=== PATIENT | male | born 1940 | race Caucasian/White ===

== ENCOUNTER → 2016-12-25 | Day surgery (SDC) | payer MEDICARE ==
[~2016-12-25] VITALS: Ht 177.8 cm; Wt 101.2 kg
[~2016-12-25] MED LIST: /PANT40TA; /WARF4TA; /WARF5TA; ACET65TA; ACETAMINOPHEN 325 MG TAB PO PRN; ACETYLCHOLINE OPHTH SOLN 1% 2ML As Ordered ONE; ALDA25TA2; ALLO100T PO; ALTA10CA; AcetaZOLAMIDE 500 MG ER CAP PO ONE; BENPAD EX; BSS with VANC/TOB/EPI for EYE CASES IR ONE; CLEO150C; COLA100C PO; COLA100C2; CORE3.12 PO; COUM1TAB14 PO; COUM1TAB19 PO; CYCLOPENTOLATE 2% OPHTH SOLN OS ONE; D5W/0.2% SODIUM CHLORIDE 250 ML IV SCH; DIGO0.12 PO; DIGO0.257; EUCELOT2; FERR325T; FERR325T3 PO; FINA5TAB2 PO; FLOM5CAP PO; FOLI1TAB; GLUC500T; HEALON DUET (HEALON 10MG/ML 0.55ML & HEALON ENDOCOAT 30MG/ML 0.85ML) As Ordered ONE; HEALON DUET (HEALON 10MG/ML 0.55ML & HEALON ENDOCOAT 30MG/ML 0.85ML) XX ONE; INSUDET SC; KEFL500C; KENALOG; KETOROLAC 0.5% OPHTH SOLN OS ONE; LASI40TA PO; LASI80TA; LIDOCAINE 1% SDV 5 ML VIAL As Ordered ONE; LIDOCAINE 1% SDV 5 ML VIAL XX ONE; LIDOCAINE 4% INJ 5 ML AMP OU ONE; LIDOCAINE W/EPINEPHRINE 1% 20ML VIAL XX ONE; LIPI20TA PO; LR 1,000 ML IV SCH; MELA0.02 PO; MIDAZOLAM INJ 2 MG/2 ML VIAL (J2250) As Ordered ONE; MOXIFLOXACIN IN BSS 0.25MG/0.25ML INTRACAMERAL INJ (OR EYE ONLY)(J2280) As Ordered ONE; MOXIFLOXACIN IN BSS 0.25MG/0.25ML INTRACAMERAL INJ (OR EYE ONLY)(J2280) ICAM ONE; MULT1TAB10 PO; NITR4TASL SL; OFLOXACIN 0.3 % (OCUFLOX) OPTH SOL 5ML OS ONE; PHENYLEPHRINE 2.5% OPHTH SOL 2ML OS ONE; POVIDONE-IODINE 5% OPHTH PREP SOL 30ML As Ordered ONE; PROPARACAINE 0.5% OPHTH SOL 15ML OS PRN; PROT1TAB2 PO; RAMI1.25 PO; SENN8.6C PO; SITA50TAB PO; SLOWTAB; TACLOIN4 EX; TRAM50TA2; TRIAMCINOLONE PRES FR 40 MG/ML 1ML(TRIESENCE)(OR EYE ONLY)(J3300 PER 1MG) As Ordered ONE; TRIAMCINOLONE PRES FR 40 MG/ML 1ML(TRIESENCE)(OR EYE ONLY)(J3300 PER 1MG) IO ONE; TRIMETHOBENZAMIDE 300 MG CAP PO PRN; TROPICAMIDE 1% OPHTH SOLN 2 ML OS ONE; TYLE325T5 PO; VITA500C; ZOCO10TA; fentaNYL 100 MCG/2 ML INJECTION (J3010) As Ordered ONE; vitamin D
[2016-12-25 12:55] VITALS: BP 120/59
--- NOTE | 2016-12-25 13:51 | RO ---
DATE OF PROCEDURE: 12/25/2016 PREPROCEDURE DIAGNOSES: Cataract and myosis left eye. POSTPROCEDURE DIAGNOSES: Cataract and myosis left eye. PROCEDURE: SURGEON: Sandra Pendleton MD LICENSED LOAN OFFICER: None. COMPLICATIONS: None. ANESTHESIA: DESCRIPTION OF PROCEDURE: Procedure in detail: The patient was brought to the operating room, laid in supine position, and the eye was prepped and draped in a sterile fashion for ophthalmic surgery, and a lid speculum was placed. A sideport incision was made, and EndoCoat was injected into the anterior chamber. A temporal clear corneal incision was then made with a 2.5 mm keratome, followed by placement of the Malyugin ring 7 mm because of myosis. Capsulorrhexis was then done for hydrodissection and phacoemulsification in a [id number] method within the capsular bag. Excess corticol material was then aspirated, and the Malyugin ring was removed. Miochol was injected because of the floppy iris. The wound was hydrated. Lid speculum removed. Intracameral moxifloxacin 0.1 mL was then given, and sub-Tenon injection cannula was given. The patient returned to the recovery room in stable condition.
== END | disposition home or self-care (01) ==
LOC: M SDC 10:07
PROVIDERS: ATTEND Ophthalmology
DX: H26.9 Unspecified cataract (principal); H57.03 Miosis; H21.81 Floppy iris syndrome; I48.91 Unspecified atrial fibrillation; I10 Essential (primary) hypertension; E78.5 Hyperlipidemia, unspecified; E66.9 Obesity, unspecified; E11.8 Type 2 diabetes mellitus with unspecified complications; I50.9 Heart failure, unspecified; D64.9 Anemia, unspecified; M19.90 Unspecified osteoarthritis, unspecified site; L40.9 Psoriasis, unspecified; G47.30 Sleep apnea, unspecified; N40.0 Benign prostatic hyperplasia without lower urinary tract symptoms; N28.9 Disorder of kidney and ureter, unspecified; Z88.6 Allergy status to analgesic agent; Z79.899 Other long term (current) drug therapy; Z79.01 Long term (current) use of anticoagulants; Z79.4 Long term (current) use of insulin
CPT/HCPCS: 66982; J2250; J2280; J3010; J3300; V2632

== ENCOUNTER → 2017-01-01 | Day surgery (SDC) | payer MEDICARE ==
[~2017-01-01] VITALS: Ht 177.8 cm; Wt 101.2 kg
[~2017-01-01] MED LIST changes: +CYCLOPENTOLATE 2% OPHTH SOLN OD ONE; -CYCLOPENTOLATE 2% OPHTH SOLN OS ONE; +D5W/0.2% SODIUM CHLORIDE 1,000 ML IV SCH; -D5W/0.2% SODIUM CHLORIDE 250 ML IV SCH; -HEALON DUET (HEALON 10MG/ML 0.55ML & HEALON ENDOCOAT 30MG/ML 0.85ML) XX ONE; +KETOROLAC 0.5% OPHTH SOLN OD ONE; -KETOROLAC 0.5% OPHTH SOLN OS ONE; -LIDOCAINE 1% SDV 5 ML VIAL XX ONE; -LIDOCAINE W/EPINEPHRINE 1% 20ML VIAL XX ONE; -LR 1,000 ML IV SCH; -MOXIFLOXACIN IN BSS 0.25MG/0.25ML INTRACAMERAL INJ (OR EYE ONLY)(J2280) ICAM ONE; +OFLOXACIN 0.3 % (OCUFLOX) OPTH SOL 5ML OD ONE; -OFLOXACIN 0.3 % (OCUFLOX) OPTH SOL 5ML OS ONE; +PERCOCET 5MG/325MG TAB PO PRN; +PHENYLEPHRINE 2.5% OPHTH SOL 2ML OD ONE; -PHENYLEPHRINE 2.5% OPHTH SOL 2ML OS ONE; +PROPARACAINE 0.5% OPHTH SOL 15ML OD PRN; -PROPARACAINE 0.5% OPHTH SOL 15ML OS PRN; -TRIAMCINOLONE PRES FR 40 MG/ML 1ML(TRIESENCE)(OR EYE ONLY)(J3300 PER 1MG) IO ONE; +TROPICAMIDE 1% OPHTH SOLN 2 ML OD ONE; -TROPICAMIDE 1% OPHTH SOLN 2 ML OS ONE
[2017-01-01 12:46] VITALS: BP 140/64
--- NOTE | 2017-01-02 10:57 | RO ---
DATE OF PROCEDURE: 01/01/2017 PREOPERATIVE DIAGNOSES: Cataract and myosis right eye. POSTPROCEDURE DIAGNOSES: Cataract and myosis right eye. PROCEDURE: Phacoemulsification with intraocular lens implantation and placement of the Malyugin ring, PCB00, 21 diopters. SURGEON: Sandra Pendleton MD [employer]HOLE [employer]ER JUMPBASTING: None. ANESTHESIA: COMPLICATIONS: None. DESCRIPTION OF PROCEDURE: Patient was brought to the operating room and laid in supine position. The eye was prepped and draped in a sterile fashion for ophthalmic surgery, and a lid speculum was placed. A sideport incision was then made, and EndoCoat was injected into the anterior chamber. A temporal clear corneal incision was made with a 2.5 mm keratome, followed by placement of the Malyugin ring, which was 7 mm. Capsulorrhexis was then carried out, followed by phacoemulsification in a [id number] method at high density setting. Cortical material was then aspirated, and Healon was placed into the capsular bag and intraocular lens (IOL) placed. Malyugin ring was then removed. Viscoelastic was aspirated. The wound was hydrated. No leaks were noted. Intracameral injections of moxifloxacin and sub-Tenon injection cannula were given. Lid speculum removed. Patient returned to the recovery room in stable condition
== END | disposition home or self-care (01) ==
LOC: M SDC 09:06
PROVIDERS: ATTEND Ophthalmology
DX: H26.9 Unspecified cataract (principal); H57.03 Miosis; I10 Essential (primary) hypertension; E11.9 Type 2 diabetes mellitus without complications; I48.91 Unspecified atrial fibrillation; I50.9 Heart failure, unspecified; I25.9 Chronic ischemic heart disease, unspecified; E78.00 Pure hypercholesterolemia, unspecified; D64.9 Anemia, unspecified; M19.90 Unspecified osteoarthritis, unspecified site; L40.9 Psoriasis, unspecified; G47.30 Sleep apnea, unspecified; N40.0 Benign prostatic hyperplasia without lower urinary tract symptoms; Z88.8 Allergy status to other drugs, medicaments and biological substances; Z79.899 Other long term (current) drug therapy; Z79.01 Long term (current) use of anticoagulants; Z79.4 Long term (current) use of insulin
CPT/HCPCS: 66982; J2250; J2280; J3010; J3300; V2632